=== PATIENT | male | born 1945 | race Caucasian/White ===

== ENCOUNTER 2017-03-01 08:08 | Emergency (ER) | payer MEDICARE ==
[~2017-03-01] VITALS: Ht 167.6 cm; Wt 84.0 kg
[~2017-03-01 08:08] MED LIST: LEVAQUIN750 MG PO; PREDNISONE10 MG PO; TIMOLOL 0.5%5 ML OU
[2017-03-01 08:59] LABS: HEMOGLOBIN 15.1 g/dl (14.0-18.0); IMMATURE GRANULOCYTES 0.3 % (0.0-1.0); MEAN CELL VOLUME 95.5 fL CALC (80.0-100.0); MEAN CORPUSCULAR HGB 32.1 pG CALC (26.0-32.0); MEAN CORPUSCULAR HGB CONC 33.6 g/L CALC (32.0-36.0); NEUT# 6.27 thou/uL (1.82-7.42); RED BLOOD COUNT 4.71 mill/uL (4.70-6.10); RED CELL DISTRI WIDTH 13.5 % (11.5-15.5)
[2017-03-01 09:05] LABS: ALBUMIN 4.4 g/dL (3.2-5.0); ALKALINE PHOSPHATASE 66 u/l (38-126); ANION GAP 12 (6-22 (CALC)); BILIRUBIN, TOTAL 0.6 mg/dL (0.0-1.4); BUN 12 mg/dL (8-23); BUN/CREATININE RATIO 16 (12-20 (CALC)); CALCIUM 9.2 mg/dL (8.4-10.2); CARBON DIOXIDE 29 mmol/l (22-30); CHLORIDE 103 mmol/l (95-108); CREATININE 0.8 mg/dL (0.7-1.3); GFR > 60 ML/MIN (>=60 (CALC)); GFR FOR AFR.AMER. > 60 ML/MIN (>=60 (CALC)); GLUCOSE 94 mg/dL (82-115); POTASSIUM 4.7 mmol/l (3.5-5.1); SGOT/AST 38 u/l (19-48); SGPT/ALT 33 u/l (11-66); SODIUM 139 mmol/l (137-146); TOTAL PROTEIN 7.6 g/dL (6.3-8.2)
[2017-03-01 09:09] LABS: AMYLASE 97 u/l (30-110); LIPASE 124 u/l (23-300)
[2017-03-01 09:19] LABS: MYOGLOBIN 28 ng/mL (0 - 121)
[2017-03-01 10:02] VITALS: BP 177/103
[2017-03-01 10:14] LABS: URINE BILIRUBIN - DIPSTICK NEGATIVE (NEGATIVE); URINE BLOOD DIPSTICK TRACE-INTACT (NEGATIVE); URINE CLARITY CLEAR; URINE COLOR YELLOW; URINE GLUCOSE - DIPSTICK NEGATIVE (NEGATIVE); URINE KETONE NEGATIVE (NEGATIVE); URINE LEUK ESTERASE NEGATIVE (Negative); URINE NITRITE - DIPSTICK NEGATIVE (Negative); URINE PROTEIN - DIPSTICK NEGATIVE (NEG-TRACE); URINE SPECIFIC GRAVITY <=1.005; URINE UROBILINOGEN - DIPSTICK 0.2 E.U./dL (0.2)
[2017-03-01 10:24] LABS: PROTHROMBIN TIME 10.7 SECONDS (9.0-12.5)
== END 2017-03-01 10:25 | disposition short-term general hospital (02) ==
LOC: ED 08:08
PROVIDERS: Emergency Medicine
DX: I21.4 Non-ST elevation (NSTEMI) myocardial infarction (principal); R20.0 Anesthesia of skin; F17.200 Nicotine dependence, unspecified, uncomplicated; R94.31 Abnormal electrocardiogram [ECG] [EKG]; R29.704 NIHSS score 4
CPT/HCPCS: J1650

== ENCOUNTER 2018-02-24 15:25 | Observation (INO) | payer MEDICARE ==
[~2018-02-24] VITALS: Ht 167.6 cm; Wt 76.7 kg
[2018-02-24] MEDS ORDERED: METOPROL TAR25 MG PO (16:04)
[2018-02-24] MEDS ORDERED: METHIMAZOLE10 MG PO (16:05)
[2018-02-24] MEDS ORDERED: ATORVASTATIN CA40 MG PO (16:05)
[2018-02-24] MEDS ORDERED: ASPIRIN81 MG PO (16:06)
[2018-02-24 16:07] LABS: HEMATOCRIT 41.5 % (39.0-50.0); IMMATURE GRANULOCYTES 0.2 % (0.0-1.0); MEAN CELL VOLUME 92.6 fL CALC (80.0-100.0); MEAN CORPUSCULAR HGB 31.3 pG CALC (26.0-32.0); MEAN CORPUSCULAR HGB CONC 33.7 g/L CALC (32.0-36.0); NEUT# 4.26 thou/uL (1.82-7.42); RED BLOOD COUNT 4.48 mill/uL (4.70-6.10); RED CELL DISTRI WIDTH 12.7 % (11.5-15.5)
[2018-02-24] MEDS ORDERED: XALATAN0.005 % OS (16:07)
[2018-02-24 16:52] LABS: ALBUMIN 3.9 g/dL (3.2-5.0); ALKALINE PHOSPHATASE 119 u/l (38-126); ANION GAP 11 (6-22 (CALC)); BILIRUBIN, TOTAL 0.4 mg/dL (0.0-1.4); BUN 14 mg/dL (8-23); BUN/CREATININE RATIO 17 (12-20 (CALC)); CARBON DIOXIDE 29 mmol/l (22-30); CHLORIDE 105 mmol/l (95-108); CREATININE 0.8 mg/dL (0.7-1.3); GFR > 60 ML/MIN (>=60 (CALC)); GFR FOR AFR.AMER. > 60 ML/MIN (>=60 (CALC)); POTASSIUM 4.5 mmol/l (3.5-5.1); SGPT/ALT 64 u/l (11-66); SODIUM 140 mmol/l (137-146); TOTAL PROTEIN 7.1 g/dL (6.3-8.2)
[2018-02-24 17:02] LABS: SGOT/AST 64 u/l (19-48)
[2018-02-24 17:04] LABS: MYOGLOBIN 22 ng/mL (0 - 121)
[2018-02-24 18:16] VITALS: BP 140/76
[2018-02-24 19:15] VITALS: BP 143/79
[2018-02-25 00:45] VITALS: BP 125/76
[2018-02-25 04:09] VITALS: BP 111/64
[2018-02-25 06:15] LABS: CALCULATED LDLCHOLESTEROL 66 mg/dL (62-129 (CALC)); CHOLESTEROL HDL RATIO 3.1 (<4.4 (CALC)); HDL CHOLESTEROL 40 mg/dL (>=40); TOTAL CHOLESTEROL 126 mg/dl (0-199); TOTAL TRIGLYCERIDES 95 mg/dl (30-149); VLDL CHOLESTROL 19 mg/dl (0-38 (CALC))
[2018-02-25 08:10] VITALS: BP 116/76
[2018-02-25 11:14] VITALS: BP 121/75
== END 2018-02-25 12:38 | disposition home or self-care (01) ==
LOC: ED 15:25 → ED-I 17:13 → ED 17:29 → MS2 17:30
PROVIDERS: Emergency Medicine; ADMIT Internal Medicine; ATTEND Internal Medicine
DX: R07.2 Precordial pain (principal); E78.00 Pure hypercholesterolemia, unspecified; F17.210 Nicotine dependence, cigarettes, uncomplicated; I25.10 Atherosclerotic heart disease of native coronary artery without angina pectoris; H40.9 Unspecified glaucoma; E05.90 Thyrotoxicosis, unspecified without thyrotoxic crisis or storm; I25.2 Old myocardial infarction; Z86.73 Personal history of transient ischemic attack (TIA), and cerebral infarction without residual deficits; Z95.1 Presence of aortocoronary bypass graft

== ENCOUNTER → 2018-10-21 | Outpatient (REF) | payer MEDICARE ==
[~2018-10-21] MED LIST changes: +ASPIRIN81 MG PO; +ATORVASTATIN CA40 MG PO; +METHIMAZOLE10 MG PO; +METOPROL TAR25 MG PO; +XALATAN0.005 % OS
[2018-10-21 10:14] LABS: TSH, 3RD GENERATION 1.35 uIU/mL (0.47 - 4.68)
== END | disposition home or self-care (01) ==
LOC: LAB 08:31
PROVIDERS: ATTEND Internal Medicine Endocrinology, Diabetes & Metabolism
DX: E05.80 Other thyrotoxicosis without thyrotoxic crisis or storm (principal)

== ENCOUNTER → 2018-10-22 | Outpatient (REF) | payer MEDICARE | END | disposition home or self-care (01) | LOC: DI 14:52 | PROVIDERS: ATTEND Internal Medicine | DX: R05 Cough (principal) ==

== ENCOUNTER 2021-10-01 12:46 | Emergency (ER) | payer MEDICARE ==
[~2021-10-01] VITALS: Ht 167.6 cm; Wt 78.0 kg
[2021-10-01] MEDS ORDERED: BUDESONID1 IN (13:14)
[2021-10-01] MEDS ORDERED: LATANOPROST0.005 % OU (13:15)
[2021-10-01] MEDS ORDERED: VIT C/VIT E PO (13:15)
[2021-10-01] MEDS ORDERED: DORZOLAMIDE HCL2 % OP (13:16)
[2021-10-01 13:41] LABS: HEMATOCRIT 48.4 % (39.0-50.0); HEMOGLOBIN 15.4 g/dl (14.0-18.0); IMMATURE GRANULOCYTES 0.1 % (0.0-5.0); MEAN CELL VOLUME 97.6 fL CALC (80.0-100.0); MEAN CORPUSCULAR HGB CONC 31.8 g/dL CAL (32.0-36.0); NEUT# 4.83 thou/uL (1.82-7.42); RED BLOOD COUNT 4.96 mill/uL (4.70-6.10); RED CELL DISTRI WIDTH 12.8 % (11.5-15.5)
[2021-10-01 13:53] LABS: ALBUMIN 4.4 g/dL (3.2-5.0); ALKALINE PHOSPHATASE 85 u/l (38-126); ANION GAP 16 (6-22 (CALC)); BUN 12 mg/dL (8-23); BUN/CREATININE RATIO 14 (12-20 (CALC)); CARBON DIOXIDE 25 mmol/l (22-30); CHLORIDE 104 mmol/l (95-108); CREATININE 0.9 mg/dL (0.7-1.3); GFR > 60 ML/MIN (>=60 (CALC)); GFR FOR AFR.AMER. > 60 ML/MIN (>=60 (CALC)); MAGNESIUM 1.9 mg/dL (1.6-2.3); POTASSIUM 4.1 mmol/l (3.5-5.1); SGOT/AST 24 u/l (19-48); SODIUM 142 mmol/l (137-146); TOTAL PROTEIN 7.5 g/dL (6.3-8.2)
[2021-10-01 14:01] LABS: BILIRUBIN, TOTAL 1.1 mg/dL (0.0-1.4)
[2021-10-01 14:23] LABS: TSH, 3RD GENERATION 1.22 uIU/mL (0.47 - 4.68)
[2021-10-01] MEDS ORDERED: TORADOL PO (16:43)
[2021-10-01] MEDS ORDERED: FLEXERIL5 M1 PO (16:43)
[2021-10-01 17:43] VITALS: BP 129/64
== END 2021-10-01 18:23 | disposition home or self-care (01) ==
LOC: ED 12:46
PROVIDERS: Emergency Medicine
DX: M48.061 Spinal stenosis, lumbar region without neurogenic claudication (principal); M54.31 Sciatica, right side; S22.080A Wedge compression fracture of T11-T12 vertebra, initial encounter for closed fracture; S32.010A Wedge compression fracture of first lumbar vertebra, initial encounter for closed fracture; E78.00 Pure hypercholesterolemia, unspecified; F17.200 Nicotine dependence, unspecified, uncomplicated; X58.XXXA Exposure to other specified factors, initial encounter; Z95.1 Presence of aortocoronary bypass graft; Z86.73 Personal history of transient ischemic attack (TIA), and cerebral infarction without residual deficits

== ENCOUNTER 2024-05-22 13:39 | Emergency (ER) | payer MEDICARE ==
[~2024-05-22] VITALS: Ht 167.6 cm; Wt 77.0 kg
[~2024-05-22 13:39] MED LIST changes: +ARICEPT10 MG PO; +BUDESONID1 IN; +DORZOLAMIDE HCL2 % OP; +FLEXERIL5 M1 PO; +LASIX20 MG PO; +LATANOPROST0.005 % OU; +MEDDOSEPAK PO; +NEURONTIN300 MG PO; +OMNICEF300 MG PO; +TORADOL PO; +VIT C/VIT E PO; +[UNRECOGNIZED DRUG - REMARK]
[2024-05-22 13:55] VITALS: BP 149/88
[2024-05-22] MEDS ORDERED: KETOROLAC TROMETHAMINE 30 MG/ML SDV IM ONE (14:05)
[2024-05-22 14:08] VITALS: BP 118/63
[2024-05-22 14:45] VITALS: BP 134/82
[2024-05-22] MEDS ORDERED: NAPROXEN500 MG PO (15:19)
[2024-05-22] MEDS ORDERED: METHOCARBAMOL500 MG PO (15:19)
[2024-05-22 15:46] VITALS: BP 134/82
== END 2024-05-22 15:57 | disposition home or self-care (01) ==
LOC: ED 13:39
DX: M48.061 Spinal stenosis, lumbar region without neurogenic claudication (principal); M47.813 Spondylosis without myelopathy or radiculopathy, cervicothoracic region; N50.812 Left testicular pain; N50.811 Right testicular pain; E78.00 Pure hypercholesterolemia, unspecified; Z72.0 Tobacco use; Z86.73 Personal history of transient ischemic attack (TIA), and cerebral infarction without residual deficits

== ENCOUNTER 2024-07-10 06:48 | Day surgery (SDC) | payer MEDICARE ==
[~2024-07-10] VITALS: Ht 167.6 cm; Wt 75.8 kg
[~2024-07-10 06:48] MED LIST changes: +METHOCARBAMOL500 MG PO; +NAPROXEN500 MG PO; +TAMSULOSIN0.4 MG PO
[2024-07-10] MEDS ORDERED: BUPIVACAINE HCL PF 0.5% 30 ML VIAL ONE (06:49)
[2024-07-10] MEDS ORDERED: SODIUM CHLORIDE 1,000 ML BTL IR ONE (06:50)
[2024-07-10] MEDS ORDERED: STERILE WATER FOR IRRIGATION 1,000 ML BTL IR ONE (06:50)
[2024-07-10] MEDS ORDERED: BACITRACIN BASE 15 GM TUBE ONE (06:51)
[2024-07-10] MEDS ORDERED: ceFAZolin Sodium 2 GM/VIAL SDV ONE (07:29)
[2024-07-10] MEDS ORDERED: SODIUM CHLORIDE 0.9% 100 ML IV ONE (07:29)
[2024-07-10] MEDS ORDERED: LACTATED RINGER'S 1,000 ML IV ONE (08:51)
[2024-07-10 10:37] VITALS: BP 151/77
[2024-07-10] MEDS ORDERED: PROPOFOL 200 MG/20 ML VIAL IV ONE (14:36)
[2024-07-10] MEDS ORDERED: ePHEDrine SULFATE 50 MG/ML AMP IV ONE (14:36)
[2024-07-10] MEDS ORDERED: DEXAMETHASONE SODIUM PHOSPHATE PF 10 MG/ML SDV IV ONE (14:36)
[2024-07-10] MEDS ORDERED: LIDOCAINE HCL 2% 2ML SDV IV ONE (14:36)
[2024-07-10] MEDS ORDERED: ACETAMINOPHEN 1,000 MG/100 ML VIAL IV ONE (14:36)
== END 2024-07-10 10:52 | disposition home or self-care (01) ==
LOC: ORM 06:48
PROVIDERS: ATTEND Urology
PROC: 0VBF0ZZ Excision of Right Spermatic Cord, Open Approach (ICD-10-PCS; principal; 2024-07-10)
DX: N43.3 Hydrocele, unspecified (principal); N50.89 Other specified disorders of the male genital organs; I11.0 Hypertensive heart disease with heart failure; I50.9 Heart failure, unspecified; J44.9 Chronic obstructive pulmonary disease, unspecified; E78.5 Hyperlipidemia, unspecified; I73.9 Peripheral vascular disease, unspecified; G62.9 Polyneuropathy, unspecified; Z86.73 Personal history of transient ischemic attack (TIA), and cerebral infarction without residual deficits; Z87.891 Personal history of nicotine dependence; Z95.1 Presence of aortocoronary bypass graft
CPT/HCPCS: J0131; J0690; J1100